=== PATIENT | female | born 1950 | race African-American/Black ===

== ENCOUNTER 2018-05-02 18:53 | Inpatient (IN) | payer MEDICARE, MEDICAID ==
[~2018-05-02] VITALS: Ht 165.1 cm; Wt 72.6 kg
[2018-05-02 19:13] VITALS: BP 135/62
[2018-05-02 19:33] LABS: BASOPHILS % (AUTO) 1.6 % (0.0-2.0); HEMATOCRIT 41.5 % (37.0-47.0); HEMOGLOBIN 14.2 G/DL (12.0-16.0); LYMPHOCYTES % (AUTO) 23.4 % (20.0-45.0); MEAN CORPUSCULAR VOLUME 88 FL (80-99); MONOCYTES % (AUTO) 4.8 % (1.0-10.0); NEUTROPHILS % (AUTO) 69.2 % (45.0-75.0); PLATELET COUNT 251 K/UL (150-450); RED BLOOD COUNT 4.69 M/UL (4.20-5.40); RED CELL DISTRIBUTION WIDTH 11.6 % (11.6-14.8); WHITE BLOOD COUNT 9.6 K/UL (4.8-10.8)
--- NOTE | 2018-05-02 19:35 | Emergency Room Report ---
History of Present Illness General Chief Complaint: Overdose Source: Patient Present Illness [facility] Mrs. Gilmore is a 68-year-old female with history of hypertension, diabetes, CVA , degenerative disc disease, wrist tendinitis, coronary artery disease, [place] presents with depressive symptoms for the last month. She overdosed on medications intentionally today. She is "tired of the pain". Her primary physician has recently prescribed mirtazapine. She has been very depressed and short tempered because she is losing her independence due to her multiple comorbidities. Her multiple medical conditions. She lives with her daughter and 2 grandchildren. She feels that she is a burden on her family. At approximately 3 or 3:30 PM, she intentionally overdosed on mirtazapine and Xanax. She took 5 tablets each. Mirtazapine 15 mg tablets. Xanax 0.25 mg tablets. She left the home. Family called police to search for her. She return to the department and admitted to the family that she did overdose. Placed on involuntary hold 5150 by police dispatcher. Patient is mildly sleepy. She takes alprazolam for claustrophobia and fear of flying. PCP noted depressive symptoms over last 30 days consequently he arranged for referral for psychiatrist. PCP Dr. Toro Carmona [facility] Patient is a retired social insurance adviser. Patient does not drink alcohol or use drugs. Allergies: Coded Allergies: No Known Allergies (Unverified , 05/02/18) Patient History Past Medical History: see triage record, DM, HTN, CAD Past Surgical History: PTCA - 4 cardiac stents, other - colon surgery Pertinent Family History: other - not pertinent to today's presentation Social History: Denies: smoking, alcohol use, drug use Social History Narrative as per HPI Now: No Reviewed Nursing Documentation: PMH: Agreed; PSxH: Agreed Nursing Documentation-PMH Past Medical History: No History, Except For Hx Cardiac Problems: Yes - Stent Hx Hypertension: Yes Hx Diabetes: Yes Review of Systems Constitutional: Denies: fever, malaise Respiratory: Denies: cough Cardiovascular: Denies: chest pain Gastrointestinal: Denies: abdominal pain All Other Systems: negative except mentioned in HPI Physical Exam Vital Signs Date Time Temp Pulse Resp B/P (MAP) Pulse Ox O2 Delivery O2 Flow Rate FiO2 05/02/18 18:49 97.5 80 20 141/75 97 Room Air Sp02 EP Interpretation: reviewed, normal General Appearance: no apparent distress, alert, GCS 15, non-toxic, other - tearful upset cooperative Head: normocephalic, atraumatic Eyes: bilateral eye normal inspection, bilateral eye PERRL ENT: hearing grossly normal, normal pharynx, no angioedema, normal voice Neck: full range of motion, supple/symm/no masses Respiratory: chest non-tender, lungs clear, normal breath sounds, speaking full sentences Cardiovascular #1: regular rate, rhythm, no edema Gastrointestinal: normal bowel sounds, non tender, soft, non-distended, no guarding, no rebound Musculoskeletal: normal range of motion, non-tender Neurologic: alert, oriented x3, responsive, motor strength/tone normal, sensory intact, speech normal Psychiatric: memory normal, depressed affect Skin: normal color, no rash, warm/dry, well hydrated Lymphatic: no adenopathy Medical Decision Making Diagnostic Impression: Primary Impression: Drug overdose Additional Impression: Suicidal overdose ER Course Mrs. Gilmore ingested nonlethal dose of alprazolam and mirtazepine. On 5150 involuntary hold, medically clear for psychiatric care, Labs Test 05/02/18 19:20 05/02/18 20:20 White Blood Count 9.6 K/UL (4.8-10.8) Red Blood Count 4.69 M/UL (4.20-5.40) Hemoglobin 14.2 G/DL (12.0-16.0) Hematocrit 41.5 % (37.0-47.0) Mean Corpuscular Volume 88 FL (80-99) Mean Corpuscular Hemoglobin 30.3 PG (27.0-31.0) Mean Corpuscular Hemoglobin Concent 34.2 G/DL (32.0-36.0) Red Cell Distribution Width 11.6 % (11.6-14.8) Platelet Count 251 K/UL (150-450) Mean Platelet Volume 5.2 FL (6.5-10.1) Neutrophils (%) (Auto) 69.2 % (45.0-75.0) Lymphocytes (%) (Auto) 23.4 % (20.0-45.0) Monocytes (%) (Auto) 4.8 % (1.0-10.0) Eosinophils (%) (Auto) 1.0 % (0.0-3.0) Basophils (%) (Auto) 1.6 % (0.0-2.0) Sodium Level 139 MMOL/L (136-145) Potassium Level 3.7 MMOL/L (3.5-5.1) Chloride Level 102 MMOL/L (98-107) Carbon Dioxide Level 27 MMOL/L (21-32) Anion Gap 10 mmol/L (5-15) Blood Urea Nitrogen 15 mg/dL (7-18) Creatinine 1.1 MG/DL (0.55-1.30) Estimat Glomerular Filtration Rate 49.3 mL/min (>60) Glucose Level 292 MG/DL (74-106) Calcium Level 10.0 MG/DL (8.5-10.1) Total Bilirubin 0.6 MG/DL (0.2-1.0) Aspartate Amino Transf (AST/SGOT) 16 U/L (15-37) Alanine Aminotransferase (ALT/SGPT) 24 U/L (12-78) Alkaline Phosphatase 137 U/L (46-116) Total Protein 9.0 G/DL (6.4-8.2) Albumin 3.7 G/DL (3.4-5.0) Globulin 5.3 g/dL Albumin/Globulin Ratio 0.7 (1.0-2.7) Salicylates Level 2.0 ug/mL (2.8-20) Acetaminophen Level < 2 MCG/ML (10-30) Serum Alcohol < 3 mg/dL Urine Opiates Screen Negative (NEGATIVE) Urine Barbiturates Screen Negative (NEGATIVE) Phencyclidine (PCP) Screen Negative (NEGATIVE) Urine Amphetamines Screen Negative (NEGATIVE) Urine Benzodiazepines Screen Positive (NEGATIVE) Urine Cocaine Screen Negative (NEGATIVE) Urine Marijuana (THC) Screen Negative (NEGATIVE) EKG Diagnostic Results Rate: normal Rhythm: NSR ST Segments: no acute changes Other Impression nl intervals, nl axis no ST elevation rate 75 bpm Last Vital Signs Date Time Temp Pulse Resp B/P (MAP) Pulse Ox O2 Delivery O2 Flow Rate FiO2 05/02/18 18:49 97.5 80 20 141/75 97 Room Air Tangela Mora MD May 02, 2018 19:35
[2018-05-02 19:44] LABS: ANION GAP 10 mmol/L (5-15); BLOOD UREA NITROGEN 15 mg/dL (7-18); CARBON DIOXIDE 27 MMOL/L (21-32); CHLORIDE 102 MMOL/L (98-107); CREATININE 1.1 MG/DL (0.55-1.30); POTASSIUM 3.7 MMOL/L (3.5-5.1); SODIUM 139 MMOL/L (136-145)
[2018-05-02 19:48] LABS: ALANINE AMINOTRANSFERASE 24 U/L (12-78); ALBUMIN 3.7 G/DL (3.4-5.0); ALBUMIN/GLOBULIN RATIO 0.7 (1.0-2.7); ALKALINE PHOSPHATASE 137 U/L (46-116); ASPARTATE AMINO TRANSFERASE 16 U/L (15-37); BILIRUBIN,TOTAL 0.6 MG/DL (0.2-1.0)
[2018-05-02 21:05] VITALS: BP 127/66
[2018-05-02 23:15] VITALS: BP 121/62
[2018-05-03 03:05] VITALS: BP 126/65
[2018-05-03 04:00] VITALS: BP 125/61
[2018-05-03] MEDS ORDERED: NORVASC2.5 MG ORAL (06:47)
[2018-05-03] MEDS ORDERED: REMERON15 M1 ORAL (06:47)
[2018-05-03] MEDS ORDERED: LISINOPRIL20 MG ORAL (06:47)
[2018-05-03] MEDS ORDERED: ALENDRONAT70 MG/75 M PO (06:47)
[2018-05-03] MEDS ORDERED: ALPRAZOLAM0.5 MG PO (06:47)
[2018-05-03] MEDS ORDERED: TENORMIN25 MG ORAL (06:47)
[2018-05-03] MEDS ORDERED: INVOKANA100 MG PO (06:47)
[2018-05-03 07:10] VITALS: BP 136/58
[2018-05-03] MEDS ORDERED: Milk of Magnesia 30ml Ud ORAL PRN (12:30)
[2018-05-03] MEDS: Atenolol 25mg tab ORAL SCH ×2 (13:13→17:40)
[2018-05-03] MEDS: NovoLOG Insulin Flexpen SUBQ SCH ×2 (14:00→22:23)
--- NOTE | 2018-05-03 19:48 | History & Physical ---
History and Physical History & Physicial HP dictated # [id number] Chu Jj MD May 03, 2018 19:48
[2018-05-03 20:00] VITALS: BP 133/59
--- NOTE | 2018-05-03 23:02 | History and Physical Report ---
DATE OF ADMISSION: 05/03/2018 CHIEF COMPLAINT: The patient overdosed on Valium and mirtazapine. HISTORY OF PRESENT ILLNESS: This is a 68-year-old female, who had an argument with her daughter and her granddaughter. She lives with them and she was upset so she went out taking 5 Valium tablets, which she usually takes when she flies because she is claustrophobic and so she took 5 mirtazapine tablets, which she takes usually for sleeping. She went outside and then she said that she talked to God and she wants to see if the that God would take her. She took 10 tablets not knowing what the outcome would be. Basically, she left it to the will of god. Then, she walked back to her residence. By that time the daughter had called the police and they saw her coming in and paramedics came and took her to the emergency room here. According to the ER note, the patient took 15 mirtazapine tablets, but she says she took only 5. The patient was put on hold 5150 by ambulance officer. PAST MEDICAL HISTORY: The patient has history of diabetes, CVA. She has a history of coronary artery disease, status post stent; tendinitis; herniated disc causing different kinds of pains. She also states she has rheumatoid arthritis. MEDICATIONS: Reviewed . SOCIAL HISTORY: The patient has no history of smoking or alcohol abuse. She used to live in [place], but has been living with the daughter over the past 6 months. She is . ALLERGIES: No known drug allergies. REVIEW OF SYSTEMS: Noncontributory. PHYSICAL EXAMINATION: GENERAL: The patient is a 68-year-old female, in no acute distress. VITAL SIGNS: Blood pressure is 128/56, pulse 85, temperature 98.2, and respirations 18. HEENT: [place] conjunctivae. Anicteric sclerae. NECK: Supple. LUNGS: Clear to auscultation HEART: S1, S2 without murmurs or rubs. ABDOMEN: Soft and nontender. EXTREMITIES: No cyanosis or edema. LABORATORY FINDINGS: The chemistry panel shows serum sodium 139, potassium 3.7, chloride 102, BUN is 15, creatinine 1.1. The CBC shows WBC of 9600, hematocrit 41.5, hemoglobin is 14.2, platelets 251,000. Toxicology screen was positive for benzodiazepines. ASSESSMENT: This is a 68-year-old female who was admitted with suicidal attempt on benzodiazepines and sleeping pill. She has history of multiple medical problems including diabetes, hypertension, coronary artery disease, rheumatoid arthritis, herniated discs, history of tendinitis. PLAN: The patient will be seen by psychiatrist and psychiatry medications will be prescribed. The patient will be observed overnight. For her diabetes, she will need sliding scale insulin. Case was discussed with the patient's RN. Chu Jj M.D. DR: Rudi JOB#: [id number] CC:
[2018-05-04] VITALS: BP 126/60
[2018-05-04 04:00] VITALS: BP 112/61
[2018-05-04] MEDS: NovoLOG Insulin Flexpen SUBQ SCH ×3 (06:50→21:52)
[2018-05-04 08:00] VITALS: BP 119/63
[2018-05-04] MEDS: Atenolol 25mg tab ORAL SCH ×2 (08:20→17:24)
[2018-05-04] MEDS: Lisinopril 20mg tab ORAL SCH (08:22)
--- NOTE | 2018-05-04 11:34 | General Progress Note ---
Assessment/Plan Problem List: (1) Drug overdose ICD Codes: T50.901A - Poisoning by unspecified drugs, medicaments and biological substances, accidental (unintentional), initial encounter SNOMED: 41664925 (2) Suicidal overdose ICD Codes: T50.902A - Poisoning by unspecified drugs, medicaments and biological substances, intentional self-harm, initialencounter SNOMED: 28206660, 93481789 (3) Osteoarthritis ICD Codes: M19.90 - Unspecified osteoarthritis, unspecified site SNOMED: 458745363 (4) Herniated disc SNOMED: 08287130 (5) CAD (coronary artery disease) ICD Codes: I25.10 - Atherosclerotic heart disease of [place] coronary artery without angina pectoris SNOMED: 52288910 (6) Diabetes ICD Codes: E11.9 - Type 2 diabetes mellitus without complications SNOMED: 44395024 Assessment/Plan pain meds PT psych F/U Discussed with RN Subjective Allergies: Coded Allergies: No Known Allergies (Unverified , 05/02/18) Subjective feels better Objective Last 24 Hour Vital Signs Date Time Temp Pulse Resp B/P (MAP) Pulse Ox O2 Delivery O2 Flow Rate FiO2 05/04/18 09:00 Room Air 05/04/18 08:22 119/63 05/04/18 08:20 64 119/63 05/04/18 08:20 64 119/63 05/04/18 08:00 70 05/04/18 08:00 97.8 64 18 119/63 (81) 96 05/04/18 04:00 98.1 65 18 112/61 (78) 95 05/04/18 04:00 63 05/04/18 00:00 98.4 68 18 126/60 (82) 95 05/04/18 00:00 69 05/03/18 21:00 Room Air 05/03/18 20:00 98.0 72 20 133/59 (83) 99 05/03/18 20:00 66 05/03/18 17:40 85 128/56 05/03/18 16:00 78 05/03/18 13:13 85 128/56 05/03/18 13:13 85 128/56 05/03/18 12:00 76 05/03/18 11:48 Room Air Intake and Output 05/03/18 05/04/18 19:00 07:00 Intake Total 580 ml 1240 ml Balance 580 ml 1240 ml Intake Oral 480 ml 120 ml IV Total 100 ml 1120 ml # Voids 2 1 # Bowel Movements 1 Height (Feet): 5 Height (Inches): 5.00 Weight (Pounds): 160 Cardiovascular: normal rate Respiratory/Chest: lungs clear Abdomen: soft Chu Jj MD May 04, 2018 11:34
[2018-05-04 20:00] VITALS: BP 148/69
[2018-05-05] VITALS: BP 136/64
[2018-05-05 04:00] VITALS: BP 140/70
[2018-05-05] MEDS: NovoLOG Insulin Flexpen SUBQ SCH (06:35)
[2018-05-05] MEDS: Atenolol 25mg tab ORAL SCH (09:32)
[2018-05-05] MEDS: Lisinopril 20mg tab ORAL SCH (09:33)
[2018-05-05 12:00] VITALS: BP 113/65
--- NOTE | 2018-05-05 12:45 | General Progress Note ---
Assessment/Plan Problem List: (1) Drug overdose ICD Codes: T50.901A - Poisoning by unspecified drugs, medicaments and biological substances, accidental (unintentional), initial encounter SNOMED: 55507713 (2) Suicidal overdose ICD Codes: T50.902A - Poisoning by unspecified drugs, medicaments and biological substances, intentional self-harm, initialencounter SNOMED: 63573822, 46981409 (3) Osteoarthritis ICD Codes: M19.90 - Unspecified osteoarthritis, unspecified site SNOMED: 015345689 (4) Herniated disc SNOMED: 76519460 (5) CAD (coronary artery disease) ICD Codes: I25.10 - Atherosclerotic heart disease of [place] coronary artery without angina pectoris SNOMED: 98900828 (6) Diabetes ICD Codes: E11.9 - Type 2 diabetes mellitus without complications SNOMED: 40158282 Assessment/Plan Dc today Discussed with Dr sellers Subjective Allergies: Coded Allergies: No Known Allergies (Unverified , 05/02/18) Subjective ok Objective Last 24 Hour Vital Signs Date Time Temp Pulse Resp B/P (MAP) Pulse Ox O2 Delivery O2 Flow Rate FiO2 05/05/18 09:33 129/66 05/05/18 09:32 70 129/66 05/05/18 09:32 70 129/66 05/05/18 09:00 Room Air 05/05/18 04:00 70 05/05/18 04:00 97.9 71 19 140/70 (93) 98 05/05/18 00:00 73 05/05/18 00:00 98.2 70 18 136/64 (88) 99 05/04/18 21:00 Room Air 05/04/18 20:00 78 05/04/18 20:00 97.5 74 20 148/69 (95) 98 05/04/18 17:24 72 119/63 05/04/18 16:00 72 Intake and Output 05/04/18 05/05/18 18:59 06:59 Intake Total 100 ml 707 ml Balance 100 ml 707 ml Intake Oral 480 ml IV Total 100 ml 227 ml Height (Feet): 5 Height (Inches): 5.00 Weight (Pounds): 160 Chu Jj MD May 05, 2018 12:45
[2018-05-05] MEDS ORDERED: 1/2 NS 1000ml IV ONE (17:42)
[2018-05-05] MEDS ORDERED: TraZODone 50mg tab ORAL SCH (21:00)
--- NOTE | 2018-05-05 23:37 | General Progress Note ---
Assessment/Plan Problem List: (1) Major depressive disorder ICD Codes: F32.9 - Major depressive disorder, single episode, unspecified SNOMED: 187930225 (2) Drug overdose, multiple drugs ICD Codes: T50.901A - Poisoning by unspecified drugs, medicaments and biological substances, accidental (unintentional), initial encounter SNOMED: 60066924 Status: stable, progressing Assessment/Plan trazodone 50mg qhs Lexapro 10mg qam the pt doesn't meet the criteria for hold dc with script Subjective Date patient seen: May 05, 2018 Neurologic/Psychiatric: Reports: anxiety, depressed, emotional problems Allergies: Coded Allergies: No Known Allergies (Unverified , 05/02/18) Subjective the pt is doing better no agitation Objective Last 24 Hour Vital Signs Date Time Temp Pulse Resp B/P (MAP) Pulse Ox O2 Delivery O2 Flow Rate FiO2 05/05/18 12:00 98.3 69 20 113/65 (81) 98 05/05/18 12:00 69 05/05/18 09:33 129/66 05/05/18 09:32 70 129/66 05/05/18 09:32 70 129/66 05/05/18 09:00 Room Air 05/05/18 08:00 68 05/05/18 04:00 70 05/05/18 04:00 97.9 71 19 140/70 (93) 98 05/05/18 00:00 73 05/05/18 00:00 98.2 70 18 136/64 (88) 99 Intake and Output 05/04/18 05/05/18 19:00 07:00 Intake Total 807 ml Balance 807 ml Intake Oral 480 ml IV Total 327 ml Height (Feet): 5 Height (Inches): 5.00 Weight (Pounds): 160 General Appearance: no apparent distress, alert, obese Neurologic: oriented x 3, responsive, depressed affect Michael Robert MD May 05, 2018 23:37
--- NOTE | 2018-05-05 23:37 | Consultation ---
History of Present Illness General Date patient seen: May 04, 2018 Chief Complaint: Overdose Present Illness HPI 68-year-old female, with hx of depression and anxiety she had an argument with her daughter and her granddaughter. She lives with the daughter. she left the house and was upset so she went out taking 5 Valium tablets, which she usually takes when she flies because she is claustrophobic and so she took 5 mirtazapine tablets, which she takes usually for sleeping. She went outside and then she said that she talked to God and she wants to see if the that God would take her. 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 the pt denied suicidal ideation and stated that she knew what she was doing. the pt denied psychotic sxs. the pt agreed to change the meds. Allergies: Coded Allergies: No Known Allergies (Unverified , 05/02/18) Medication History Scheduled Alprazolam* (Xanax*), 0.25 MG PO QHS, (Reported) Amlodipine Besylate (Norvasc), 2.5 MG ORAL DAILY, (Reported) Atenolol (Tenormin), 50 MG ORAL BID, (Reported) Canagliflozin (Invokana), 100 MG PO DAILY, (Reported) Lisinopril (Lisinopril*), 12.5 MG ORAL DAILY, (Reported) Mirtazapine (Remeron), 15 MG ORAL BEDTIME, (Reported) Miscellaneous Medications Alendronate Sodium (Alendronate Sodium), Unknown Dose PO, (Reported) Patient History History Provided By: Patient, Medical Record, PMD Healthcare decision maker Pat Boateng (Daughter) Resuscitation status Advanced Directive on File Past Medical/Surgical History Past Medical/Surgical History: (1) Osteoarthritis (2) Herniated disc (3) CAD (coronary artery disease) (4) Diabetes Review of Systems Psychiatric: Reports: prior hx, anxiety, depressed feelings, emotional problems Physical Exam General Appearance: alert, moderate distress, obese Neurologic: oriented x 3, responsive, depressed affect Last 24 Hour Vital Signs Date Time Temp Pulse Resp B/P (MAP) Pulse Ox O2 Delivery O2 Flow Rate FiO2 05/05/18 12:00 98.3 69 20 113/65 (81) 98 05/05/18 12:00 69 05/05/18 09:33 129/66 05/05/18 09:32 70 129/66 05/05/18 09:32 70 129/66 05/05/18 09:00 Room Air 05/05/18 08:00 68 05/05/18 04:00 70 05/05/18 04:00 97.9 71 19 140/70 (93) 98 05/05/18 00:00 73 05/05/18 00:00 98.2 70 18 136/64 (88) 99 Intake and Output 05/04/18 05/05/18 19:00 07:00 Intake Total 807 ml Balance 807 ml Intake Oral 480 ml IV Total 327 ml Height (Feet): 5 Height (Inches): 5.00 Weight (Pounds): 160 Assessment/Plan Problem List: (1) Major depressive disorder ICD Codes: F32.9 - Major depressive disorder, single episode, unspecified SNOMED: 718433041 (2) Drug overdose, multiple drugs ICD Codes: T50.901A - Poisoning by unspecified drugs, medicaments and biological substances, accidental (unintentional), initial encounter SNOMED: 13976394 Status: stable Assessment/Plan ativan prn. 1:1 sitter cont to monitor. Michael Robert MD May 05, 2018 23:37
--- NOTE | 2018-05-07 09:21 | Discharge Summary ---
Discharge Summary Discharge Summary _ DATE OF ADMISSION: 05/03/2018 DATE OF DISCHARGE: 05/05/2018 REASON FOR ADMISSION: 68 years old female with multiply chronic medical problems, including coronary artery disease ,status post [employer], history of CVA, hypertension, diabetes mellitus , osteoarthritis, herniated disc, depression and anxiety, presented after overdose intentionally on medications. Patient reported that she was tired of the pain and being burden to her family. Patient recently was prescribed Remeron by her primary physician. Patient was depressed and short tempered , because she was losing her independence due to multiply comorbidities. Patient lives with her daughter and 2 grandchildren. Patient intentionally overdosed on Remeron and Xanax, taken 5 pills of each, and subsequently left her home. Family called police to search for her. Patient returned to apartment , admitting that she did overdose. Patient was placed on involuntary hold 5150 by police commissioner. Patient was brought to ED for evaluation. Apparently primary care provider noted depressive symptoms, started patient on Remeron and arranged for referral to psychiatrist. Patient does not drink alcohol or use drugs. On initial evaluation patient was drowsy. Laboratory workup was unremarkable, except glucose 292. Urine toxicology screen was positive for benzodiazepine. Patient takes Xanax for claustrophobia and fear of flying. Serum alcohol, Tylenol and salicylates levels all negative. Patient was admitted with diagnoses of drug overdose, suicidal overdose. CONSULTANTS: psychiatrist Dr. Robert [facility] COURSE: Patient admitted to monitored floor. Psychiatric evaluation was requested. Patient was provided with 1 to 1 sitter. Ativan was on board as needed. Psychiatrist started patient on trazodone and Lexapro. Scripts provided upon discharge. Psychiatrist concluded , that the patient did not meet criteria for hold. Psychiatrist cleared patient for discharge with outpatient follow-up with psychiatrist ( per referral from PMD ). Blood sugar was managed with sliding scale of insulin. Blood pressure was managed with multiply regimen of antihypertensives, including beta sean, MÓNICA inhibitor and calcium channel sean. Patient was subsequently discharged home. FINAL DIAGNOSES: Major depressive disorder Drug overdose, multiply drug Suicidal overdose Osteoarthritis Herniated disc Diabetes Coronary artery disease DISCHARGE MEDICATIONS: See Medication Reconciliation list. DISCHARGE INSTRUCTIONS: Patient was discharged home. Follow up with primary care provider in one week and follow-up with a psychiatrsit as outpatient. I have been assigned to dictate discharge summary for this account. I was not involved in the patient's management. Ann Iryb NP May 07, 2018 09:21
== END 2018-05-05 16:30 | disposition home or self-care (01) | DRG 918 ==
LOC: EDBD 18:53 → EMR 22:11 → 2E 05-03 07:00 → EDBEDREQ 05-03 09:31 → 2E 05-03 13:11
DX: T42.4X2A Poisoning by benzodiazepines, intentional self-harm, initial encounter (principal); T43.022A Poisoning by tetracyclic antidepressants, intentional self-harm, initial encounter; Y92.009 Unspecified place in unspecified non-institutional (private) residence as the place of occurrence of the external cause; E11.9 Type 2 diabetes mellitus without complications; F32.9 Major depressive disorder, single episode, unspecified; I25.10 Atherosclerotic heart disease of native coronary artery without angina pectoris; F40.240 Claustrophobia
CPT/HCPCS: 36415; 80053; 80307; 80329; 82962; 85025; 93005; 99285; J1815